=== PATIENT | male | born 2000 | race Two or more races ===

== ENCOUNTER 2020-05-19 18:37 | Emergency (ER) | payer SELFPAY ==
[~2020-05-19] VITALS: Ht 167.6 cm; Wt 72.7 kg
[2020-05-19 19:20] VITALS: BP 162/78
[2020-05-19] MEDS ORDERED: ACETAMINOPHEN 500 MG TABLET PO ONE (20:15)
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
[2020-05-19] MEDS ORDERED: AMOX1TAB61 PO (20:59)
[2020-05-19] MEDS ORDERED: DIPH,PERTUSS(ACELL),TET VAC/PF 0.5 ML SYRINGE. VAX IM ONE (21:30)
== END 2020-05-19 21:45 | disposition home or self-care (01) ==
LOC: ER 18:37
DX: S02.2XXA Fracture of nasal bones, initial encounter for closed fracture (principal); S00.81XA Abrasion of other part of head, initial encounter; Y08.89XA Assault by other specified means, initial encounter; Y93.89 Activity, other specified; Y92.89 Other specified places as the place of occurrence of the external cause; Y99.8 Other external cause status
CPT/HCPCS: 70486; 90471; 90715; 99284